=== PATIENT | female | born 1935 | race Two or more races ===

== ENCOUNTER 2016-12-22 10:53 | Emergency (ER) | payer OTHER ==
[2016-12-22 10:59] VITALS: BP 159/72; PULSE 74; TEMP 98; BMI 29.7
--- NOTE | 2016-12-22 12:06 | PDOC ---
History of Present Illness - General Stated Complaint: SWOLLEN TONGUE Time Seen by Provider: 12/22/16 11:38 History Source: Patient, Care Provider, Admittance Attendant Used ([id number]) Exam Limitations: Language Barrier - History of Present Illness Initial Comments: 12/22/16 12:01 81 yr female with c/o lump under the right tounge for 3 days. no diff swallowing , breathing or speaking. Pt is able to eat and drink. Pt has not seen the dentist in many years. Pt denies fever, chills neg nvd , neg headache or weakness. Pt is accompanied by her FOOD SELECTOR. 12/22/16 14:24 Past History - Past Medical History Allergies/Adverse Reactions: Allergies Allergy/AdvReac Type Severity Reaction Status Date / Time iodine Allergy Unknown Verified 12/22/16 10:59 shellfish derived Allergy Unknown Verified 12/22/16 10:59 Home Medications: Ambulatory Orders Amlodipine Bes/Olmesartan Med [Rubén 10-40 mg Tablet] 1 each PO DAILY 04/05/16 Aspirin [ASA -] 81 mg PO DAILY 04/05/16 Clopidogrel Bisulfate [Clopidogrel] 75 mg PO DAILY 04/05/16 Lansoprazole [Prevacid -] 30 mg PO DAILY 04/05/16 Meloxicam [Mobic] 15 mg PO DAILY 04/05/16 Metformin HCl [Metformin HCl ER] 500 mg PO BID 04/05/16 [place]-3 Fatty Acids [Fish Oil] 300 mg PO DAILY 04/05/16 Amlodipine Bes/Olmesartan Med [Rubén 10-40 mg Tablet] 1 each PO DAILY 05/08/16 Atorvastatin Ca [Lipitor] 20 mg PO HS 05/08/16 Diphenhydramine HCl [Diphen] 25 mg PO BID 05/08/16 Sennosides [Senna] 2 tab PO DAILY 05/08/16 Clopidogrel Bisulfate [Clopidogrel] 75 mg PO DAILY 12/22/16 Labetalol HCl [Normodyne -] 200 mg PO BID 12/22/16 Linaclotide [Linzess] 145 mcg PO DAILY 12/22/16 Memantine HCl [Namenda Xr] 14 mg PO DAILY 12/22/16 Mirtazapine 15 mg PO 12/22/16 Omeprazole 40 mg PO ASDIR 12/22/16 Diabetes: Yes (NIDDM) HTN: Yes - Surgical History Abdominal Surgery: Yes (HERNIA) - Psycho/Social/Smoking Cessation Hx Suicidal Ideation: No Smoking History: Never smoked Information on smoking cessation initiated: No Hx Alcohol Use: No Drug/Substance Use Hx: No Review of Systems - Review of Systems Able to Perform ROS?: Yes Is the patient limited Angolan proficient: No Constitutional: No: Symptoms Reported HEENTM: Yes: See HPI Respiratory: No: Symptoms reported Cardiac (ROS): No: Symptoms Reported ABD/GI: No: Symptoms Reported : No: Symptoms Reported Musculoskeletal: No: Symptoms Reported *Physical Exam - Vital Signs Last Vital Signs Temp Pulse Resp BP Pulse Ox 98 F 74 18 159/72 98 12/22/16 10:54 12/22/16 10:54 12/22/16 10:54 12/22/16 10:54 12/22/16 10:54 - Physical Exam General Appearance: Yes: Nourished, Appropriately Dressed HEENT: positive: EOMI, JOSAFAT, Normal Voice, Other (floor of mouth on the right side with flesh colored soft 2cm area of swelling, no streaking no dental pain or trauma ). negative: Excessive drooling Neck: positive: Supple. negative: Tender Respiratory/Chest: positive: Lungs Clear, Normal Breath Sounds Cardiovascular: positive: Regular Rhythm, Regular Rate Gastrointestinal/Abdominal: positive: Normal Bowel Sounds, Soft Musculoskeletal: positive: Normal Inspection Extremity: positive: Normal Capillary Refill, Normal Inspection, Normal Range of Motion Integumentary: positive: Normal Color, Dry, Warm Neurologic: positive: Fully Oriented, Alert, Normal Mood/Affect, Normal Response , Motor Strength 5/5 Medical Decision Making - Medical Decision Making 12/22/16 12:03 cc: lump under tounge, no tounge swelling no diff swallowing or breathing no tounge swelling no redness or drainage, multiple poor dentition, cracked , missing teeth neg cervical lymphadenopathy uvula midline no swelling will refer to ENT and to dentist as I have discussed in detail 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 with 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 and her FOOD SELECTOR that pt needs urgent follow up as this can be malignant, pt and the FOOD SELECTOR understand the need for urgent follow up and I will give pt numbers for ENT and the dentist 12/22/16 15:17 *DC/Admit/Observation/Transfer Diagnosis at time of Disposition: Mouth swelling - Discharge Dispostion Disposition: HOME Condition at time of disposition: Good - Referrals Referrals: Jose Hickey [Primary Care Provider] - Kevin Broussard MD [Staff Physician] - - Patient Instructions Additional Instructions: follow with the ENT and the dentist and with your primary call TODAY To set up appointment call at [phone] the ENT doctor Seguir con el otorrinolaringlogo y el dentista Llame KENTRELLY Para establecer francisco jam Xiaoame a al [phone] el doctor ENT
== END 2016-12-22 12:23 | disposition home or self-care (01) ==
LOC: JERFT 10:53
DX: R22.1 Localized swelling, mass and lump, neck (principal); Z91.048 Other nonmedicinal substance allergy status; Z91.013 Allergy to seafood; Z79.84 Long term (current) use of oral hypoglycemic drugs
CPT/HCPCS: 99281-25